=== PATIENT | female | born 1965 | race Caucasian/White ===

== ENCOUNTER → 2018-12-19 09:58 | Outpatient (CLI) | payer BC, SELFPAY ==
--- NOTE | 2018-12-19 10:01 | BI_ITS ---
MAMMOGRAPHY - BILATERAL SCREENING REASON FOR EXAM: Female, 53 years old. Routine annual screening examination. PERTINENT HISTORY: Mother with breast cancer. TECHNIQUE: Digital bilateral breast genevieve (3D mammographic acquisition) in the CC and MLO projections. 2-D mediolateral oblique (MLO) and craniocaudad (CC) views of both breasts were obtained. CAD: Full Field Digital Mammography with Computer Added Detection was performed. COMPARISON: Comparison is made with prior abdomen examination dated December 08, 2017. FINDINGS: Breast Composition: The breasts are heterogeneously dense, which may obscure small masses. There are no dominant masses or suspicious calcifications. Stable appearance of the small bilateral axillary lymph nodes. No other significant abnormalities are identified. There has been no significant change since the prior study. BI/SCREEN MAMM (CAD) W/GENEVIEVE BILAT IMPRESSION: Stable bilateral screening mammogram. Yearly follow-up mammogram recommended. (A) ASSESSMENT CATEGORY: BIRADS Category 2: Benign. A letter regarding these results will be sent to the patient by the facility within 30 days. Approximately 10% of breast cancers are not detected by mammography. A normal mammogram should not delay biopsy of a clinically suspicious abnormality. [id number] Electronically Signed: Harry Salas, at 13:37 EDT , Service support ,
== END ==
PROVIDERS: Family Provider Student in an Organized Health Care Education/Training Program; PCP Student in an Organized Health Care Education/Training Program; Referring Provider Obstetrics & Gynecology; Visit Provider Obstetrics & Gynecology
DX: Z12.31 Encounter for screening mammogram for malignant neoplasm of breast (principal)
CPT/HCPCS: 77063; 77067

== ENCOUNTER → 2019-02-27 14:09 | Outpatient (CLI) | payer BC, SELFPAY ==
[2019-02-12 09:43] VITALS: BMI 34.0
--- NOTE | 2019-02-27 14:10 | US_ITS ---
STUDY: ULTRASOUND OF THE FEMALE PELVIS - COMPLETE REASON FOR EXAM: Female, 53 years old. Postmenopausal bleeding. LMP: TECHNIQUE: Transabdominal and Transvaginal TECHNICAL QUALITY: Adequate. COMPARISON: None. FINDINGS: Abnormal enlarged uterus measuring 11.4 x 6.2 x 6.0 cm. Uterus is lobulated and heterogeneous. At least 2 dominant fibroids are seen measuring 2.4 and 2.7 cm. Diffuse leiomyomatous changes also probable. Normal endometrial thickness measuring 5.5 mm. There are no endometrial masses, and there is no fluid in the endometrial cavity. Endometrial echoes are hyperechoic. Nabothian cyst of the uterine cervix. The right ovary is visualized. Normal right ovary, measuring 1.9 x 2.1 x 0.8 cm. There is no right ovarian cyst or ovarian mass. There is no visualized right adnexal mass or complex lesion. There is normal arterial and normal venous vascularity. The left ovary is visualized. Normal left ovary, measuring 2.2 x 1.6 x 1.0 cm. There is no left ovarian cyst or ovarian mass. There is no visualized left adnexal mass or complex lesion. There is normal arterial and normal venous vascularity. There is mild free fluid in the pelvis. The pre void volume of the bladder was 270 ml. US/Transvaginal Non- IMPRESSION: Enlarged heterogeneous uterus with focal fibroids as much as 2.7 cm and probable diffuse leiomyomatous change. Electronically Signed: Yobani Samuels MD at 12:53 EDT , Service support ,
--- NOTE | 2019-02-27 14:10 | US_ITS ---
STUDY: ULTRASOUND TRANSVAGINAL CLINICAL: Female, 53 years old. Irregular menses. Heavy bleeding. TECHNIQUE: Transvaginal COMPARISON: None. FINDINGS: Abnormal enlarged uterus measuring 11.4 x 6.2 x 6.0 cm. Uterus is lobulated and heterogeneous. At least 2 dominant fibroids are seen measuring 2.4 and 2.7 cm. Diffuse leiomyomatous changes also probable. Normal endometrial thickness measuring 5.5 mm. There are no endometrial masses, and there is no fluid in the endometrial cavity. Endometrial echoes are hyperechoic. Nabothian cyst of the uterine cervix. Normal right ovary, measuring 1.9 x 2.1 x 0.8 cm. There are multiple follicles without a dominant cyst. Normal left ovary, measuring 2.2 x 1.6 x 1.0 cm. There are multiple follicles without a dominant cyst. There is mild free fluid in the pelvis. Normal bladder contour. US/Pelvic (Non ) IMPRESSION: Enlarged heterogeneous uterus with focal fibroids as much as 2.7 cm and probable diffuse leiomyomatous change. Electronically Signed: Yobani Samuels MD at 12:50 EDT , Service support ,
== END ==
PROVIDERS: Family Provider Student in an Organized Health Care Education/Training Program; PCP Student in an Organized Health Care Education/Training Program; Referring Provider Obstetrics & Gynecology; Visit Provider Obstetrics & Gynecology
DX: N39.3 Stress incontinence (female) (male) (principal); N95.0 Postmenopausal bleeding
CPT/HCPCS: 76830; 76856; 93976

== ENCOUNTER 2019-04-24 09:33 | Day surgery (SDC) | payer BC, SELFPAY ==
[2019-02-12 09:43] VITALS: BMI 34.0
[2019-04-10 16:35] VITALS: BMI 34.0
--- NOTE | 2019-04-18 09:07 | EKG12_ITS ---
Test Reason : PRE OP Blood Pressure : / mmHG Vent. Rate : 068 BPM Atrial Rate : 068 BPM P-R Int : 142 ms QRS Dur : 090 ms QT Int : 416 ms P-R-T Axes : 064 067 068 degrees QTc Int : 442 ms Normal sinus rhythm Normal ECG Confirmed by MAKENZIE MASTERSON ([id number]), editor book TOMASA JACKSON ([id number]) on 04/23/2019 9:14:48 AM Referred By: Kelley Mann Confirmed By:MAKENZIE MASTERSON
[2019-04-18 10:23] LABS: Hematocrit 45.3 % (37-47); Hemoglobin 14.9 g/dL (12.0-15.0); Mean Corp Hgb Conc 32.9 g/dL (32-36); Mean Corpuscular Hgb 29.9 pg (27.0-32.0); Mean Platelet Vol. 9.3 fl (6.2-12.0); Platelet Count 311 K/mm3 (150-450); RBC Distribution Width CV 12.5 % (11.6-14.6); RBC Distribution Width SD 41.3 fl (35.1-43.9); Red Blood Count 4.98 M/mm3 (4.2-5.4); White Blood Count 7.5 K/mm3 (4.4-11.0)
[2019-04-24] VITALS (12 sets, daily range): BP systolic 99–120; BP diastolic 45–78; PULSE 56–88; RESP 16; TEMP 36.4–37.3; O2SAT 95–100; BMI 33.1
[2019-04-24] MEDS: Scopolamine 1mg/72hr Patch 1 PATCH TRANSDERM. (09:50)
[2019-04-24] MEDS: Magnesium Sulfate 4gm/100mL 4 GM/100 ML IV.SOLN. IV (09:50)
[2019-04-24] MEDS: Acetaminophen 500 MG Tablet 1000 MG PO ×3 (09:50→23:12)
[2019-04-24] MEDS: Phenazopyridine 95 MG Tablet 190 MG PO (09:50)
[2019-04-24] MEDS: dexAMETHasone 10 MG/ML Vial 8 MG IV (09:50)
[2019-04-24] MEDS: Celecoxib 200 MG Capsule 400 MG PO (09:50)
[2019-04-24] MEDS: Gabapentin 600 MG Tablet PO (09:50)
[2019-04-24] MEDS: Enoxaparin 40 MG/0.4 ML Syringe SC (09:50)
[2019-04-24 10:10] LABS: Internal QC Validated? YES +Cl - CLEAR BKGD; Pregnancy, Urine Negative Negative
[2019-04-24] MEDS: Lactated Ringers 1,000 ML 40 ML IV ×2 (11:12→14:30)
--- NOTE | 2019-04-24 11:23 | HP.PCM_ITS ---
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 Is patient in pain?: No Allergies No Known Allergies Allergy (Verified 04/10/19 16:35) Medications bupropion HCl XL 300 mg 24 hr tablet, extended release 300 mg PO QAM 02/02/18 [History Confirmed 04/10/19] ezetimibe 10 mg tablet 10 mg PO QDAY 02/02/18 [History Confirmed 04/10/19] Post menopausal: No Patient : No : No PFSH Medical History Hyperlipidemia (Chronic) Depression (Acute) Abnormal Pap smear of cervix (Acute) Surgical History H/O abdominoplasty (Acute) Family History Unknown Cancer ovarian- cousin Mother Heart disease Diabetes Breast cancer Father Colon cancer Sister Breast cancer Social History (Updated 04/10/19 @ 17:00 by Kelley Mann MD) Smoking Status: Never smoker alcohol intake: current details: wine couple times a week substance use type: does not use caffeine: Yes what type of physical activity do you participate in: aerobics, weight training frequency: daily seatbelt use: always do you feel safe at home: Yes additional social history: Djudjss-Glnzv-Boevnxc Patient does not want work HPI ÁNGELA JUÁREZ cysto: Details: ZEB CIFUENTES is a 53 year old who presents for preop visit. she is going to have a hysterectomy for uterine fibroids. Female Reproductive History Menopausal Symptoms: Yes night sweats Pregancy History 2 Elective abortions Hx Para 2 Spontaneous abortions Hx # Term Pregnancies Ectopic pregnancies Hx # Pregnancies Multiple births # of living children Past Pregnancies Del. Date Name GA/Weeks Outcome Route Bth Weight Gen Labor Lgth Ane sthesia Del Locatn Provider FOB Unknown 1993 Alvaro Unknown 1994 Stacie ROS Const Constitutional: Reports as per HPI and night sweats; denies fatigue, increased appetite, poor appetite, weight gain or weight loss Cardio Card: Denies chest pain Resp Resp: Denies cough or dyspnea GI GI: Reports as per HPI; denies abdominal pain, bloating, constipation, nausea or vomiting : Reports as per HPI, urinary incontinence and other; denies difficulty urinating, painful urination, blood in urine, nipple discharge, pelvic pain, prolapse symptoms, urinary frequency, urinary urgency, vaginal discharge, vaginal dryness, vaginal odor or vaginal itching Skin Skin/Breast: Denies nipple discharge Psych Psych: Denies anxiety or depression Exam Const General: cooperative, healthy appearing, comfortable, no acute distress, well developed, well groomed HENWY Head: normal to inspection, normocephalic Ears: hearing grossly normal bilaterally, external ears normal Nose: external nose normal Face and sinus: normal facial exam Neck Neck: normal visual inspection, full ROM, no lymphadenopathy Thyroid: thyroid normal Chest Chest palpation & inspection: normal inspection of the chest Breast inspection: normal inspection of the breasts, normal inspection of the ax illae Breast palpation: normal palpation of the breasts, normal palpation of the axillae, no axillary lymphadenopathy Resp Effort & Inspection: normal respiratory effort GI Inspection: normal to inspection, non-distended Palpation: soft, no hepatosplenomegaly, no guarding General: bladder normal to palpation External Female Exam: normal external appearance, normal appearance of the urethra, no lesions Urethra: normal appearance of the urethra Speculum Exam - Vagina: normal appearance of the vagina, normal vaginal dis charge Speculum Exam - Cervix: normal appearance of the cervix, no cervical discharge, no lesions, nontender Bimanual Exam- Vagina & Uterus: bladder normal to palpation, No cervical tenderness Bimanual Exam- Adnexa, other: normal adnexae, no adnexal masses, adnexae non- tender Skin General: no rashes or lesions noted Neuro General: alert, moves all extremities, no focal motor deficits Extrem General: normal to inspection, no pedal edema Psych Appearance: grossly normal Mental Status: mental status grossly normal Affect: normal affect Speech and Movement: speech and movement normal Attitude: cooperative Assessment & Plan Problems 1. Uterine fibroid D25.9 discussed and plan ERIKH bs cysto, will coordinate with dr goins 2. Stress incontinence in female N39.3 has used apex in past, plan sling with buster Plan After discussing the patient's diagnosis and treatment plan options, patient wishes to proceed with surgical management. I have discussed with the patient the risks, benefits, and alternatives of the procedure which include but are not limited to risks of anesthesia, bleeding, infection, possible damage to bowel, bladder, or surrounding vasculature which could lead to additional surgery to evaluate any complications. Patient agrees to procedure and wishes to proceed. ACOG/uptodate references given for additional information regarding procedure. Coding Level of Care Code No Charge Diagnoses Uterine fibroid D25.9 Stress incontinence in female N39.3 UPDATE- I have seen the patient and performed any clinically relevant updates to the history and physical exam. Kelley Mann MD
--- NOTE | 2019-04-24 11:24 | OP.PCM_ITS ---
Problem List (1) Stress incontinence in female Status: Acute Comment: has used apex in past, plan sling with buster (2) Uterine fibroid Status: Acute Comment: discussed and plan LAVH bs cysto, will coordinate with dr goins (3) Hyperlipidemia Status: Chronic Report of Operation Date of Procedure: 04/24/19 Pre-Operative Diagnosis: fibroid uterus enlarged MARTÍN Post-Operative Diagnosis: same Surgery/Procedure Performed:: lavh bs Description of Surgical Findings:: enlarged fibroid uterus senior qualitative researcher: Tiffany Rodriguez Type of Anesthesia:: General Special Medications: paty Specimen's removed: uterus tubes Drains: woodward Estimated Blood Loss (mL): 150 Fluids Replaced: crystalloid Description of Procedure: Patient received preoperative antibiotics and SCDs were on preoperatively. Patient was taken back to the operating room and placed in the dorsal lithotomy position. General anesthesia was induced and patient was prepped and draped in normal sterile fashion. Uterine manipulator was placed inside the uterus and Woodward catheter placed in the bladder. The umbilicus was grasped with towel clamps and an intraumbilical incision was made after injecting with quarter percent Marcaine and a Veress needle entered into the abdomen confirmed to be intra-abdominal with a low opening pressure. Abdomen was insufflated with CO2 gas and the Veress needle removed and the 5 mm trocar was placed under direct visualization without complication. Right and left lower quadrants were transilluminated and injected with quarter percent Marcaine and 5 mm ports placed under direct visualization. Pelvis was well visualized see operative findings for additional information. Bilateral fallopian tubes were identified and transected with the LigaSure device across the mesosalpinx to the level of the utero-ovarian ligament which was also transected with the LigaSure device. The broad ligament was opened up by transecting the round ligament bilaterally and skeletonizing the uterine vessels bilaterally and creating a bladder flap using the LigaSure device. The uterine arteries were transected bilaterally with good visualization of the bladder and the ureters were seen to be inferior lateral to the operative area. Attention was then paid to the vaginal portion of the procedure and the cervix was grasped with Tereza clamps and circumferentially injected with dilute vasopressin. A circumferential incision was made and the vaginal mucosa was mobilized off posteriorly and the cul-de-sac entered into sharply and a longneck speculum placed. The anterior cul-de-sac was then identified and entered into sharply. The uterosacral ligaments were clamped cut and suture ligated with 0 Monocryl bilaterally followed by the cardinal ligaments which were clamped cut and suture ligated bilaterally with 0 Monocryl. The uterus serially descended and was removed without difficulty. Pelvic sidewall pedicles were checked and noted to have excellent hemostasis. The vaginal mucosa was reapproximated incorporating the posterior peritoneum. This was reapproximated using 0 Vicryl [id number] sutures. Excellent hemostasis was noted. The cystoscopy was then performed and bilateral ureteral strong spray was noted and the bladder was noted to have no abnormality or lesions seen. Woodward catheter was replaced and then attention paid to the abdominal portion of the procedure again. The pelvis and cul-de-sac was well visualized and no significant active bleeding noted but some raw areas were seen on the peritoneum and therefore Paty was applied. Pressure was taken down and the areas visualized and noted of excellent hemostasis. All ports were removed under direct visualization without complication and the abdomen was desufflated of air. The instruments removed from the abdomen and the vagina vaginal sweep was negative. Port sites on the abdomen were closed with 4-0 Monocryl interrupted sutures and Steri's and windows were applied. She was awoken and taken recovery in stable condition. see urogyn dictation for additional ope rative information please. Grafts/Implants Used: sling - Complications none - Admit VTE Documentation VTE Present on Admission: No VTE Mechan Device Prophylaxis: SCD's Multi Select Codes - Urinary/Genital Urinary/Genital CPT Codes: 40451 LAVH+BS/O >250gr Uterus
--- NOTE | 2019-04-24 11:28 | PCM.DC.VHY ---
Discharge Diet: No Restrictions Discharge Activity: Return to Normal Activity, May Not Drive, May Shower May resume sexual activity in: 6-8 weeks Call your doctor if your incision/area has: Continuous Slow Oozing, Sudden Increased Bleeding, Increased Pain/ Swelling, Increased Redness, Foul Smelling Discharge Call your doctor if you observe: Fever of 101 or Higher, Inability to urinate, Inability to have a bowel movement, Using more than one pad per hour Allergies/Adverse Reactions: Allergies No Known Allergies Allergy (Verified 04/17/19 14:03) Medications to take at Discharge bupropion HCl XL 300 mg 24 hr tablet, extended release 300 mg PO QAM 02/02/18 ezetimibe 10 mg tablet 10 mg PO QDAY 02/02/18 Cholecalciferol (Vitamin D3) [Vitamin D3] 5,000 unit PO DAILY 04/17/19 Naproxen [Naprosyn] 250 - 500 mg PO Q8H PRN PRN #30 tab 04/24/19 Oxycodone HCl/Acetaminophen [Percocet 5-325] 1 - 2 tablet PO Q6H PRN PRN 7 Days #15 tablet 04/24/19 The following prescriptions were given: Naproxen [Naprosyn] 250 - 500 mg PO Q8H PRN PRN #30 tab PRN Reason: MILD PAIN Transmission Status: Pending to [facility] Oxycodone HCl/Acetaminophen [Percocet 5-325] 1 - 2 tablet PO Q6H PRN PRN 7 Days #15 tablet PRN Reason: Pain Transmission Status: Sent to [facility] Orders to be completed after discharge: Type & Screen Time Frame: 04/17/19, Facility: [facility], Location: Laboratory 12 Lead EKG [[facility]] Time Frame: 04/17/19, Facility: [facility], Location: Cardiovascular Services CBC-Complete Blood Cnt No Diff Time Frame: 04/17/19, Facility: [facility], Location: Laboratory Primary Care Physician: Raul Gauthier DO [Primary Care Provider] - Test Results: Test results from this visit will be discussed in further detail at your follow-up appointment, if applicable. Please Follow Up With: Kelley Mann MD - [phone]
[2019-04-24 11:40] LABS: Bedside Glucose 84 mg/dL (70-110)
--- NOTE | 2019-04-24 11:50 | HYST_PTH ---
PATIENT: ZEB CIFUENTES LOC: [facility] [place] U#:[id number] AGE/SX: 53/F ROOM: RE04/24/[address]: Dr. Kelley Mann MD : [id number] BED: DIS: 04/25/2019 SPEC #: [id number] RECD: 04/24/19 16:14 STATUS: MATTHEW RUTH #: [id number] LANCE: 04/24/19 11:[address]: Kelley Mann DEPT: SURGICAL PATHOLOGY RECD BY: Andrés Pete ENTERED: 04/25/19 09:32 SP TYPE: HYSTERECT OTHR DR: MD Dr. Precious Vaughn MD Dr. Jordan Garrison, DO Tissues: Uterus, NOS Procedures: Surgery Specimen Level V HEADER OPERATION: ERAS, hysterectomy, LAVH, salpingectomy, cysto PRE-OP DIAGNOSIS: Uterine fibroid TISSUE SUBMITTED: Uterus and bilateral fallopian tubes MICROSCOPIC DIAGNOSIS Uterus and bilateral fallopian tubes, hysterectomy and bilateral salpingectomy: Cervix - chronic inflammation. Endometrium - secretory endometrium. Myometrium - intramural and submucosal leiomyomas (largest measuring 2.5 cm in greatest dimension). - Focal superficial adenomyosis. Bilateral fallopian tubes - no pathologic diagnosis. SJ:holland 04/26/19 MICROSCOPIC DESCRIPTION Slides are reviewed. GROSS DESCRIPTION Received in fixative is one container labeled with the patient's name and designated uterus and bilateral fallopian tubes. The specimen consists of a hysterectomy specimen consisting of uterus with cervix and attached right fallopian tube and detached left fallopian tube. The uterus with cervix weighs 230 gm and measures 12 x 9 x 7 cm. The serosal surface is swan, glistening. The ectocervical mucosa is unremarkable. The external os is oval and patulous in contour. The endocervical canal measures 4 cm in length and the endocervical mucosa is swan, glistening and unremarkable. The triangular endometrial cavity measures 5.5 cm in length and up to 4 cm in width. The endometrium is swan, glistening, focally congested and measures up to 0.2 cm in thickness. Sections of the uterine wall reveal multiple intramural and submucosal nodular masses. The largest mass measures 2.5 cm in greatest dimension. Sections of these masses reveal swan whorled cut surfaces without areas of hemorrhage, necrosis or cystic degeneration. The uninvolved uterine wall measures up to 3 cm in thickness. The attached right fallopian tube measures 7 cm in length and up to 0.8 cm in diameter. The fimbrial end is identified. Sections reveal congested cut surfaces. No mass lesion is identified. The detached left fallopian tube measures 5 cm in length and 0.5 cm in diameter. The fimbrial end is identified. Sections reveal unremarkable cut surfaces. Flower Shop Laborer/Designer sections are submitted in ten cassettes as follows: 1??anterior cervix, 2 - posterior cervix, 3 & 4 - anterior uterine wall, 5 & 6 - posterior uterine wall, 7??largest nodular mass, 8 - intermediate size and smaller nodular masses, 9 - right fallopian tube, 10??left fallopian tube. / SJ:holland 04/25/19 TC: CPT: 04201
[2019-04-24] MEDS: Cefazolin 2 GM in 0.9% Normal Saline 100 ML IV (12:35)
[2019-04-24] MEDS: Bupivacaine 0.25% 30 ML Vial (13:10)
[2019-04-24] MEDS: Vasopressin 20 UNITS/ML Vial (13:43)
--- NOTE | 2019-04-24 16:05 | PCM.OPRPT ---
Problem List (1) Urethral hypermobility Status: Acute (2) Stress incontinence in female Status: Acute Comment: has used apex in past, plan sling with buster Report of Operation Date of Procedure: 04/24/19 Pre-Operative Diagnosis: urethral hypermobility, stress incontinence Post-Operative Diagnosis: same Surgery/Procedure Performed:: Altis midurethral sling insertion, cystoscopy Description of Surgical Findings:: sling good position, no complications Type of Anesthesia:: General Estimated Blood Loss (mL): 25cc Description of Procedure: The patient is a 53-year-old female who was undergoing a hysterectomy and desired definitive treatment for her stress incontinence in combination surgical intervention. She was evaluated with urodynamics and informed consent was obtained. The patient underwent laparoscopic assisted vaginal hysterectomy. Following closure of the cuff the case was turned over to ri. The mid urethra was identified. A Hinojosa catheter was already indwelling and draining the urinary bladder. The submucosa of the mid urethra was injected for hydrostatic dissection and hemostatic control. A midline incision approximately 1.5 cm in length was made in both sharp and blunt dissection ensued until the periurethral space was opened bilaterally. The trochars were used to insert the mesh and this was done without difficulty bilaterally. The mesh was then positioned flat against the urethra without tension. The tensioning suture was then cut. The incision was closed in running interlocking fashion. A cystourethroscopy was performed revealing no entry into the urinary bladder or the urethra with any foreign object including mesh. Bilateral ureteral jets were observed. There were no bladder mucosal abnormalities identified. At this time the Hinojosa catheter was replaced and the patient was awakened and taken to the recovery room in good condition. There were no complications during this procedure. Grafts/Implants Used: Altis midurethral sling - Complications none - Admit VTE Documentation VTE Present on Admission: Yes VTE Mechan Device Prophylaxis: SCD's VTE Pharm Prophylaxis ordered?: Yes
--- NOTE | 2019-04-24 16:11 | DCINST_ITS ---
Discharge Activity: Return to Normal Activity, May Not Drive, May not drive while taking narcotic pain medications., May Shower May resume sexual activity in: 6-8 weeks Lifting Restrictions: 5 pounds for 4 weeks Additional Activity Instructions:: no strenuous activity, no intercourse, no exercise, nothing per vaginal for 4 weeks. ok to shower, no tub bathing or swimming Call your doctor if your incision/area has: Continuous Slow Oozing, Sudden Increased Bleeding, Increased Pain/ Swelling, Increased Redness, Foul Smelling Discharge Call your doctor if you observe: Fever of 101 or Higher, Inability to urinate, Inability to have a bowel movement, Using more than one pad per hour, Calf discomfort, Uncontrolled pain Allergies/Adverse Reactions: Allergies No Known Allergies Allergy (Verified 04/17/19 14:03) Medications to take at Discharge bupropion HCl XL 300 mg 24 hr tablet, extended release 300 mg PO QAM 02/02/18 ezetimibe 10 mg tablet 10 mg PO QDAY 02/02/18 Cholecalciferol (Vitamin D3) [Vitamin D3] 5,000 unit PO DAILY 04/17/19 Naproxen [Naprosyn] 250 - 500 mg PO Q8H PRN PRN #30 tab 04/24/19 Oxycodone HCl/Acetaminophen [Percocet 5-325] 1 - 2 tab PO Q6H PRN PRN 7 Days #15 tab 04/24/19 The following prescriptions were given: Naproxen [Naprosyn] 250 - 500 mg PO Q8H PRN PRN #30 tab PRN Reason: MILD PAIN Transmission Status: Received by [facility] Oxycodone HCl/Acetaminophen [Percocet 5-325] 1 - 2 tab PO Q6H PRN PRN 7 Days #15 tab PRN Reason: Pain Transmission Status: Received by [facility] Orders to be completed after discharge: Type & Screen Time Frame: 04/17/19, Facility: [facility], Location: Laboratory 12 Lead EKG [[facility]] Time Frame: 04/17/19, Facility: [facility], Location: Cardiovascular Services CBC-Complete Blood Cnt No Diff Time Frame: 04/17/19, Facility: [facility], Location: Laboratory Primary Care Physician: Raul Gauthier DO [Primary Care Provider] - Test Results: Test results from this visit will be discussed in further detail at your follow- up appointment, if applicable. Please Follow Up With: Precious Peralta MD When: 2 weeks, call for appt Proposed Discharge Date: 04/25/19
[2019-04-24] MEDS: Ketorolac 30 MG/ML Syringe IV ×2 (18:06→23:12)
[2019-04-24] MEDS: Docusate Sodium 100 MG Capsule PO (21:55)
[2019-04-24] MEDS: Cephalexin 500 MG Capsule PO (21:55)
[2019-04-24] MEDS: Lactated Ringers 1,000 ML 70 ML IV (23:13)
[2019-04-25 05:15] VITALS: BP 103/63; PULSE 69; RESP 16; TEMP 36.6; O2SAT 99
[2019-04-25 05:23] LABS: Hematocrit 36.8 % (37-47); Hemoglobin 12.4 g/dL (12.0-15.0); Mean Corp Hgb Conc 33.7 g/dL (32-36); Mean Corpuscular Hgb 30.8 pg (27.0-32.0); Mean Corpuscular Volume 91.3 fL (81-99); Mean Platelet Vol. 9.5 fl (6.2-12.0); Platelet Count 258 K/mm3 (150-450); RBC Distribution Width CV 12.6 % (11.6-14.6); RBC Distribution Width SD 41.9 fl (35.1-43.9); Red Blood Count 4.03 M/mm3 (4.2-5.4); White Blood Count 12.7 K/mm3 (4.4-11.0)
[2019-04-25] MEDS: Ketorolac 30 MG/ML Syringe IV (05:27)
[2019-04-25] MEDS: Acetaminophen 500 MG Tablet 1000 MG PO (05:27)
[2019-04-25 07:32] VITALS: O2SAT 95
--- NOTE | 2019-04-25 07:56 | PN.OBGYN_ITS ---
Patient Problems: Active and Suspected Problems (Last Reviewed 04/10/19 @ 16:34 by Jacklyn Neves) Urethral hypermobility (Acute) Subjective: Doing well. Pain controlled. Tolerating po foods. No CP, SOB. Cath out-has not urinated yet. - Physical Exam Vitals/I&O's: Vital Signs Temp Pulse Resp BP Pulse Ox 97.9 F 69 16 103/63 99 04/25/19 05:15 04/25/19 05:15 04/25/19 05:15 04/25/19 05:15 04/25/19 05:15 Oxygen Flow Rate (L/min) 6 Oxygen Delivery Method Room Air Weight: 187 lb 2.759 oz Body Mass Index (BMI) 33.1 Intake and Output for Last 24 Hours 04/23/19 04/24/19 04/25/19 23:59 23:59 23:59 Intake Total 2357.33 / 2357.33 700 / 700 Output Total 915 / 915 1800 / 1800 Balance 1442.33 / 1442.33 -1100 / -1100 General: Oriented x3 Abdomen: Soft, Non-Distended, - - dressings dry and intact Laboratory Results 04/24/19 10:05: Blood Type O NEGATIVE, Antibody Screen NEGATIVE 04/24/19 10:05: Urine Test Negative 04/24/19 11:32: POC Glucose 84 04/25/19 05:05: WBC 12.7 H, RBC 4.03 L, Hgb 12.4, Hct 36.8 L, MCV 91.3, MCH 30.8, MCHC 33.7, RDW Std Deviation 41.9, RDW Coeff of Zeke 12.6, Plt Count 258, MPV 9.5 Current Medications Acetaminophen (Tylenol) 1,000 mg PO Q6 [facility] Last Admin: 04/25/19 05:27 Dose: 1,000 mg Documented by: Cephalexin (Keflex) 500 mg PO Q12 [facility] Last Admin: 04/24/19 21:55 Dose: 500 mg Documented by: Docusate Sodium (Colace) 100 mg PO BID [facility] Last Admin: 04/24/19 21:55 Dose: 100 mg Documented by: Enoxaparin Sodium (Lovenox) 40 mg SC DAILY [facility] Lactated Ringer's () 1,000 mls @ 70 mls/hr IV .[id number] [facility] Stop: 04/25/19 16:30 Last Admin: 04/24/19 23:13 Dose: 70 mls/hr Documented by: Ketorolac Tromethamine (Toradol) 30 mg IV Q6 [facility] Stop: 04/26/19 00:01 Last Admin: 04/25/19 05:27 Dose: 30 mg Documented by: Magnesium Oxide (Mag-Ox 400) 400 mg PO DAILY PRN PRN PRN Reason: Constipation Nutritional Formula (Lactose Free) (Ensure Enlive) 120 ml PO TIDCM [facility] Ondansetron HCl (Zofran Odt) 4 mg PO Q6H PRN PRN PRN Reason: NAUSEA Oxycodone HCl (Oxyir) 5 - 10 mg PO Q4H PRN PRN PRN Reason: Pain Score 4-10/10 Sodium Chloride () 10 - 40 ml IV UD PRN PRN Reason: SALINE FLUSH Medical Necessity - Tobacco Use Smoking Status: Never smoker Tobacco Use: Non-smoker Assessment/Plan All Active Problems (Last Reviewed 04/10/19 @ 16:34 by Jacklyn Neves) Urethral hypermobility (Acute) Uterine fibroid (Acute) Depression (Acute) Stress incontinence in female (Acute) Postop day #1 LAV[facility], cysto and urology care with Dr. Peralta Routine care Stable Discharge today.
[2019-04-25 09:32] VITALS: BP 116/61; PULSE 72; RESP 16; TEMP 36.6; O2SAT 95
--- NOTE | 2019-04-25 09:51 | NURSING ---
Addendum entered by Janice Garrido 04/25/19 10:14: Dr. Peralta returned call and requested a second reading- same completed- 300cc output and 82ml PVR. Dr. Peralta notified and ok with d/c. Also asked if pt was to continue on Keflex and notified not ordered and for x1 dose of diflucan now prior to leaving hospital. Dr. Peralta states she will call in ATB to pt pharmacy- [facility] [address] [facility]. Pt and notified of same- no further questions at this time. Original Note: Message left with Dr. Peralta of result of urination and bladder scan.
[2019-04-25] MEDS: Docusate Sodium 100 MG Capsule PO (10:30)
[2019-04-25] MEDS: Cephalexin 500 MG Capsule PO (10:30)
[2019-04-25] MEDS: Fluconazole 100 MG Tablet 200 MG PO (10:48)
== END 2019-04-25 11:02 | disposition home or self-care (01) ==
LOC: SDC 09:33 → AC 10:05 → MS3 14:39
PROVIDERS: Urology; Family Provider Student in an Organized Health Care Education/Training Program; PCP Student in an Organized Health Care Education/Training Program; Referring Provider Obstetrics & Gynecology; Visit Provider Obstetrics & Gynecology
PROC: 0UT9FZZ Resection of Uterus, Via Natural or Artificial Opening With Percutaneous Endoscopic Assistance (ICD-10-PCS; CPT 58552; principal; 2019-04-24 11:25)
PROC: 0TJB8ZZ Inspection of Bladder, Via Natural or Artificial Opening Endoscopic (ICD-10-PCS; CPT 57288; 2019-04-24 11:25)
DX: D25.9 Leiomyoma of uterus, unspecified (principal); N39.46 Mixed incontinence; N36.41 Hypermobility of urethra; R35.0 Frequency of micturition; E78.5 Hyperlipidemia, unspecified; G47.30 Sleep apnea, unspecified; F32.9 Major depressive disorder, single episode, unspecified; Z79.899 Other long term (current) drug therapy
CPT/HCPCS: 57288; 58552; 36415; 81025; 82962; 85027; 86850; 86900; 86901; 88307; 93005; J7120; C1758; J2405

== ENCOUNTER → 2019-12-24 08:42 | Outpatient (CLI) | payer BC, SELFPAY ==
[2019-08-08 09:25] VITALS: BMI 32.1
--- NOTE | 2019-12-24 08:44 | BI_ITS ---
MAMMOGRAPHY - BILATERAL SCREENING REASON FOR EXAM: Female, 54 years old. Routine annual screening examination. PERTINENT HISTORY: Sister with breast cancer. Mother with breast cancer. TECHNIQUE: Digital bilateral breast genevieve (3D mammographic acquisition) in the CC and MLO projections. 2-D mediolateral oblique (MLO) and craniocaudad (CC) views of both breasts were obtained. CAD: Full Field Digital Mammography with Computer Added Detection was performed. COMPARISON: Comparison is made with prior examination dated December 19, 2018. FINDINGS: Breast Composition: The breasts are heterogeneously dense, which may obscure small masses. There are no dominant masses or suspicious calcifications. Stable small benign appearing bilateral axillary lymph nodes. No other significant abnormalities are identified. There has been no significant change since the prior study. BI/SCREEN MAMM (CAD) W/GENEVIEVE BILAT IMPRESSION: Stable bilateral screening mammogram. Yearly follow-up mammogram recommended. (A) ASSESSMENT CATEGORY: BIRADS Category 2: Benign. A letter regarding these results will be sent to the patient by the facility within 30 days. Approximately 10% of breast cancers are not detected by mammography. A normal mammogram should not delay biopsy of a clinically suspicious abnormality. [id number] Electronically Signed: Harry Salas, at 9:57 EDT , Service support ,
== END ==
PROVIDERS: PCP Student in an Organized Health Care Education/Training Program; Referring Provider Obstetrics & Gynecology; Visit Provider Obstetrics & Gynecology
DX: Z12.31 Encounter for screening mammogram for malignant neoplasm of breast (principal)
CPT/HCPCS: 77063; 77067

== ENCOUNTER → 2021-01-12 12:51 | Outpatient (CLI) | payer BC, SELFPAY ==
[2020-03-31 14:47] VITALS: BMI 32.1
[2020-12-23 15:35] VITALS: BMI 32.1
--- NOTE | 2021-01-12 12:53 | BI_ITS ---
MAMMOGRAPHY - BILATERAL SCREENING REASON FOR EXAM: Female, 55 years old. Routine annual screening examination. PERTINENT HISTORY: Sister with breast cancer. Mother with breast cancer. TECHNIQUE: Digital bilateral breast genevieve (3D mammographic acquisition) in the CC and MLO projections. 2-D mediolateral oblique (MLO) and craniocaudad (CC) views of both breasts were obtained. CAD: Full Field Digital Mammography with Computer Added Detection was performed. COMPARISON: Comparison is made with prior study dated 12/24/2019 and 12/19/2018. FINDINGS: Breast Composition: The breasts are heterogeneously dense, which may obscure small masses. There are no dominant masses or suspicious calcifications. Stable small benign appearing bilateral axillary lymph nodes. No other significant abnormalities are identified. There has been no significant change since the prior study. BI/SCRN MAMM (CAD)W/GENEVIEVE BILAT IMPRESSION: Stable bilateral screening mammogram. Yearly follow-up mammogram recommended. (A) ASSESSMENT CATEGORY: BIRADS Category 2: Benign. A letter regarding these results will be sent to the patient by the facility within 30 days. Approximately 10% of breast cancers are not detected by mammography. A normal mammogram should not delay biopsy of a clinically suspicious abnormality. [id number] Electronically Signed: Harry Salas MD at 14:48 EDT , Service support ,
== END ==
PROVIDERS: PCP Student in an Organized Health Care Education/Training Program; Referring Provider Obstetrics & Gynecology; Visit Provider Obstetrics & Gynecology
DX: Z12.31 Encounter for screening mammogram for malignant neoplasm of breast (principal)
CPT/HCPCS: 77063; 77067

== ENCOUNTER 2021-07-20 15:10 | Outpatient (CLI) | payer BC, SELFPAY ==
[2021-07-20 16:37] LABS: NATERA MAILED SPECIMEN
== END 2021-07-20 23:59 | disposition short-term general hospital (02) ==
LOC: PAVLAB 15:11
PROVIDERS: PCP Student in an Organized Health Care Education/Training Program; Referring Provider Obstetrics & Gynecology; Visit Provider Obstetrics & Gynecology
DX: Z12.4 Encounter for screening for malignant neoplasm of cervix (principal)
CPT/HCPCS: 36415

== ENCOUNTER → 2022-01-21 | Outpatient (CLI) | payer BC, SELFPAY ==
--- NOTE | 2022-01-21 15:07 | BI_ITS ---
MAMMOGRAPHY - BILATERAL SCREENING 3-D TOMOSYNTHESIS REASON FOR EXAM: Female, 56 years old. Routine screening PERTINENT HISTORY: Mother and sister TECHNIQUE: 2-D mammograms and 3-D Tomosynthesis of the breast (s) were performed. CAD was performed. COMPARISON: 12/24/2019 FINDINGS: The breast composition is heterogeneously dense that can obscure small breast masses. Scattered benign calcifications are seen. No dense spiculated masses or suspicious microcalcifications are identified. No architectural distortion is identified. There is no skin thickening or retraction. There has been no significant change since the prior study. BI/SCRN MAMM (CAD)W/GENEVIEVE BILAT IMPRESSION: No mammographic signs of malignancy. Routine yearly mammograms recommended. ASSESSMENT CATEGORY: BIRADS Category 2: Benign. A letter regarding these results will be sent to the patient by the facility within 30 days. FOLLOW UP RECOMMENDATION: Yearly follow up mammogram recommended. (A) Approximately 10% of breast cancers are not detected by mammography. A normal mammogram should not delay biopsy of a clinically suspicious abnormality. Electronically Signed: Boni Lui MD at 15:55 EDT ,
== END | disposition home or self-care (01) ==
LOC: OPBI 15:06
PROVIDERS: PCP Student in an Organized Health Care Education/Training Program; Referring Provider Obstetrics & Gynecology; Visit Provider Obstetrics & Gynecology
DX: Z12.31 Encounter for screening mammogram for malignant neoplasm of breast (principal)
CPT/HCPCS: 77063; 77067

== ENCOUNTER → 2023-01-24 | Outpatient (CLI) | payer BC, SELFPAY ==
--- NOTE | 2023-01-24 08:41 | BI_ITS ---
MAMMOGRAPHY - BILATERAL SCREENING REASON FOR EXAM: Female, 57 years old. Routine annual screening examination. PERTINENT HISTORY: Sister with breast cancer. Mother with breast cancer. TECHNIQUE: Digital bilateral breast genevieve (3D mammographic acquisition) in the CC and MLO projections. 2-D mediolateral oblique (MLO) and craniocaudad (CC) views of both breasts were obtained. CAD: Full Field Digital Mammography with Computer Added Detection was performed. COMPARISON: Comparison is made with prior study January 21, 2022 and January 12, 2021. FINDINGS: Breast Composition: The breasts are heterogeneously dense, which may obscure small masses. There are no dominant masses or suspicious calcifications. Stable small benign-appearing bilateral axillary nodes. No other significant abnormalities are identified. There has been no significant change since the prior study. BI/SCRN MAMM (CAD)W/GENEVIEVE BILAT IMPRESSION: Stable bilateral screening mammogram. Yearly follow-up mammogram recommended. (A) ASSESSMENT CATEGORY: BIRADS Category 2: Benign. A letter regarding these results will be sent to the patient by the facility within 30 days. Approximately 10% of breast cancers are not detected by mammography. A normal mammogram should not delay biopsy of a clinically suspicious abnormality. [id number] Electronically Signed: Harry Salas MD at 10:32 EDT ,
== END | disposition home or self-care (01) ==
LOC: OPBI 08:40
PROVIDERS: PCP Student in an Organized Health Care Education/Training Program; Referring Provider Obstetrics & Gynecology; Visit Provider Obstetrics & Gynecology
DX: Z12.31 Encounter for screening mammogram for malignant neoplasm of breast (principal); Z80.3 Family history of malignant neoplasm of breast
CPT/HCPCS: 77063; 77067

== ENCOUNTER → 2024-01-26 | Outpatient (CLI) | payer BC, SELFPAY ==
--- NOTE | 2024-01-26 07:15 | BI_ITS ---
MAMMOGRAPHY - BILATERAL SCREENING 3-D TOMOSYNTHESIS REASON FOR EXAM: Female, 58 years old. Screening for breast cancer PERTINENT HISTORY: No significant family history. TECHNIQUE: 2-D mammograms and 3-D Tomosynthesis of the breast (s) were performed. CAD was performed. COMPARISON: 01/24/2023 FINDINGS: The breast composition is heterogeneously dense that can obscure small breast masses. Scattered benign calcifications are seen. No dense spiculated masses or suspicious microcalcifications are identified. No architectural distortion is identified. There is no skin thickening or retraction. There has been no significant change since the prior study. BI/SCRN MAMM (CAD)W/GENEVIEVE BILAT IMPRESSION: No mammographic signs of malignancy. Routine yearly mammograms recommended. ASSESSMENT CATEGORY: BIRADS Category 1: Negative. A letter regarding these results will be sent to the patient by the facility within 30 days. FOLLOW UP RECOMMENDATION: Yearly follow up mammogram recommended. (A) Approximately 10% of breast cancers are not detected by mammography. A normal mammogram should not delay biopsy of a clinically suspicious abnormality. Electronically Signed: Amauri Bass MD at 13:34 EDT ,
== END | disposition home or self-care (01) ==
LOC: OPBI 07:15
PROVIDERS: PCP Student in an Organized Health Care Education/Training Program; Referring Provider Obstetrics & Gynecology; Visit Provider Obstetrics & Gynecology
DX: Z12.31 Encounter for screening mammogram for malignant neoplasm of breast (principal)
CPT/HCPCS: 77063; 77067

== ENCOUNTER → 2024-10-08 | Outpatient (CLI) | payer BC, SELFPAY ==
--- NOTE | 2024-10-08 09:38 | RAD_ITS ---
PROCEDURE: CHEST PA AND LATERAL 10/08/2024 REASON FOR EXAM: COUGH TECHNIQUE: Frontal and lateral views of the chest. COMPARISON: None FINDINGS: Hardware: None Heart: The heart size is normal. Mediastinum: The mediastinal contour is unremarkable. Lungs: The lungs are clear. Bones: Degenerative changes are identified within the thoracic spine. RAD/Chest PA and Lateral IMPRESSION: NO ACUTE FINDINGS. Reading Location: [place] [id number]
== END | disposition home or self-care (01) ==
LOC: MTRAD 09:37
PROVIDERS: PCP Student in an Organized Health Care Education/Training Program; Referring Provider Physician Assistant; Visit Provider Physician Assistant
DX: R05.9 Cough, unspecified (principal)
CPT/HCPCS: 71046

== ENCOUNTER → 2024-12-26 | Outpatient (CLI) | payer BC, SELFPAY ==
[2024-12-26 12:39] LABS: AST(SGOT) 28 U/L (<=31); Alanine Aminotransfer ALT/SGPT 29 U/L (<=34); Albumin, Serum 4.4 g/dL (3.5-5.0); Alkaline Phosphatase 94 U/L (35-104); Anion Gap 10 (5-15); BUN 15 mg/dL (4-19); BUN/Creat Ratio 17.2 RATIO (10-20); Calcium,Total 9.7 mg/dL (7.6-11.0); Carbon Dioxide 25.1 mmol/L (21.0-32.0); Chloride 105 mmol/L (98-108); Cholesterol 206 mg/dL (<=200); Globulin 2.6 g/dL (2.2-4.2); Glucose 98 mg/dL (70-99); Low Density Lipoprotein Calc. 117 mg/dL; Potassium 4.5 mmol/L (3.3-5.1); Triglycerides 125 mg/dL; Very Low Density Lipoprotein 25 mg/dL (5-40); cholesterol:hdl ratio screen 3.22
== END | disposition home or self-care (01) ==
LOC: LAB 11:23
PROVIDERS: PCP Student in an Organized Health Care Education/Training Program; Referring Provider Student in an Organized Health Care Education/Training Program; Visit Provider Student in an Organized Health Care Education/Training Program
DX: E78.2 Mixed hyperlipidemia (principal); R73.9 Hyperglycemia, unspecified; R94.5 Abnormal results of liver function studies
CPT/HCPCS: 36415; 80053; 80061; 83036

== ENCOUNTER → 2025-01-28 | Outpatient (CLI) | payer BC, SELFPAY ==
--- NOTE | 2025-01-28 08:30 | BI_ITS ---
EXAM: SCRN MAMM (CAD)W/GENEVIEVE BILAT DATE: 01/28/2025 CLINICAL HISTORY: F, Age 59 y/o , SCREENING MAMMOGRAM TECHNIQUE: SCRN MAMM (CAD)W/GENEVIEVE BILAT COMPARISON: Prior exam(s) dated 01/26/2024, 01/24/2003, and 01/21/2022. FINDINGS: TISSUE DENSITY: There are scattered areas of fibroglandular density. Bilateral Breast Mammographic Findings: A 4 mm, partially obscured, masslike density in the superior medial, middle 3rd aspect of the left breast is noted. Further workup is indicated. Benign round microcalcifications are seen in the left breast. Benign round microcalcifications are seen in the right breast. No suspicious masses, suspicious clustered microcalcifications, architectural distortion or secondary sign of malignancy is identified in the right breast. BI/SCRN MAMM (CAD)W/GENEVIEVE BILAT IMPRESSION: A 4 mm, partially obscured, masslike density in the superior medial, middle 3rd aspect of the left breast is noted. Further workup is indicated. Should return for an LM view of the left breast as well a s spot compression CC and spot compression MLO view of the left breast nodular masslike density. An ultrasound will most like ly also be needed. OVERALL FINAL ASSESSMENT BI-RADS 0: INCOMPLETE - NEED ADDITIONAL IMAGING EVALUATION. RECOMMENDATION: Additional Views obtained/call backs A letter with findings and recommendations will be mailed to the patient. Reading Location: [id number]
== END | disposition home or self-care (01) ==
LOC: OPBI 08:29
PROVIDERS: PCP Student in an Organized Health Care Education/Training Program; Referring Provider Obstetrics & Gynecology; Visit Provider Obstetrics & Gynecology
DX: Z12.31 Encounter for screening mammogram for malignant neoplasm of breast (principal)
CPT/HCPCS: 77063; 77067

== ENCOUNTER → 2025-01-30 | Outpatient (CLI) | payer BC, SELFPAY ==
--- NOTE | 2025-01-30 13:07 | US_ITS ---
PROCEDURE: BREAST LIMITED UNILATERAL 01/30/2025 REASON FOR EXAM: F, Age 59 y/o , ABN MAMM COMPARISON: Prior mammogram done earlier in the day.. TECHNIQUE: BREAST LIMITED UNILATERAL. Targeted ultrasound of the left upper medial aspect of the breast obtained. FINDINGS: Fibroglandular tissue. No sonographic abnormality is seen. US/Breast Limited Unilateral IMPRESSION: No sonographic abnormality is seen. Routine annual mammographic follow-up katherine mmended. BI-RADS 1: NEGATIVE RECOMMENDATION: Routine annual follow-up in 1 Year Reading Location: [id number]
--- NOTE | 2025-01-30 13:07 | BI_ITS ---
EXAM: DIAG MAMM W/CAD, UNILAT 01/30/2025 CLINICAL HISTORY: F, Age 59 y/o , ABN MAMM TECHNIQUE: DIAG MAMM W/CAD, UNILAT. 90 degree lateral and compression spot views were obtained. COMPARISON: Prior exam(s) dated January 28, 2025.. FINDINGS: TISSUE DENSITY: There are scattered areas of fibroglandular density. Bilateral Breast Mammographic Findings: Persistent 4 mm nodule in the superior medial aspect of the left breast. Sonographic correlation recommended. BI/DIAG MAMM W/CAD, UNILAT IMPRESSION: Persistent 4 mm nodule in the superior medial aspect of the left breast. Sonog raphic correlation recommended. OVERALL FINAL ASSESSMENT BI-RADS 0: INCOMPLETE - NEED ADDITIONAL IMAGING EVALUATION. RECOMMENDATION: Ultrasound Recommended A letter with findings and recommendations will be mailed to the patient. Reading Location: [id number]
== END | disposition home or self-care (01) ==
PROVIDERS: PCP Student in an Organized Health Care Education/Training Program; Referring Provider Obstetrics & Gynecology; Visit Provider Obstetrics & Gynecology
DX: R92.8 Other abnormal and inconclusive findings on diagnostic imaging of breast (principal)
CPT/HCPCS: 76642; 77061; 77065; G0279

== ENCOUNTER → 2025-05-01 | Outpatient (CLI) | payer BC, SELFPAY ==
--- NOTE | 2025-05-01 10:03 | RAD_ITS ---
PROCEDURE: CHEST PA AND LATERAL 05/01/2025 REASON FOR EXAM: COUGH TECHNIQUE: Procedure Code: RADCXR Modality: DX Procedure: CHEST PA AND LATERAL COMPARISON: October 08, 2024 FINDINGS: Hardware: None Heart: The heart size is normal. Mediastinum: The mediastinal contour is unremarkable. Lungs: The lungs are clear. Bones: The bones are unremarkable. RAD/Chest PA and Lateral IMPRESSION: No acute cardiopulmonary process Reading Location: [id number]
== END | disposition home or self-care (01) ==
LOC: MTRAD 10:03
PROVIDERS: PCP Student in an Organized Health Care Education/Training Program; Referring Provider Physician Assistant; Visit Provider Physician Assistant
DX: R05.9 Cough, unspecified (principal)
CPT/HCPCS: 71046